=== PATIENT | male | born 1935 | race Caucasian/White ===

== ENCOUNTER → 2017-12-21 | Outpatient (CLI) | payer MEDICARE ==
[~2017-12-21] MED LIST: ASPIRIN81 M1 PO; DOXYCYCLINE HY100 MG PO; LOSARTAN-HCTZ1 EACH PO; MAGNESIUM250 MG PO; METHYLPRED TAB 4MG; PROSCAR5 MG PO; Theragran-M,Centrum, PO; Vitamin D PO
== END | disposition home or self-care (01) ==
LOC: CDC 14:47
DX: Z01.810 Encounter for preprocedural cardiovascular examination (principal); R10.12 Left upper quadrant pain; R10.11 Right upper quadrant pain; K59.00 Constipation, unspecified; E53.8 Deficiency of other specified B group vitamins; K30 Functional dyspepsia; Z86.010 Personal history of colon polyps
CPT/HCPCS: 93000